=== PATIENT | male | born 1955 | race African-American/Black ===

== ENCOUNTER 2016-08-01 22:28 | Inpatient (IN) | payer OTHER ==
--- NOTE | ~2016-08-01 | DS ---
Discharge Summary [facility] [address] [place]. [address] NAME: OKSANA BANUELOS : 59 STATUS : DIS IN PAT#: [id number] AGE: 60 ADM/REG DATE : 08/02/16 MR#: [id number] REPORT SERV DATE: 08/11/16 DICTATED BY: BISI ROMERO DATE: 08/10/16 REPORT STATUS : Draft TRANSCRIBED BY: MODL DATE: 08/10/16 ADMISSION DATE: 08/02/2016 DISCHARGE DATE: 08/10/2016 REASON FOR ADMISSION: Abdominal pain concerning for acute pancreatitis. HOSPITAL COURSE AND H AND P: Please refer to my discharge dictation dated 08/07/2016, for complete details regarding the patient's admission. In brief, the patient was admitted to the hospital service for his abdominal pain. The patient was initially scheduled to have been discharged to a rehab facility; we were continuously waiting for insurance approval. Then, finally on Thursday, we heard back from the insurance company saying that he had been denied for rehab, so we decided to discharge the patient home on Thursday. However, on Thursday, he had complained of some hematuria and a possible syncopal episode. Talking with the nurse that situation happened yesterday, but at any rate, we obtained a UA which was negative for hematuria and repeated KUB for his abdominal distention which has continued to show gas and stool, but no ascites. He was monitored and he will be discharged home today in stable condition as he has been denied rehab. DISCHARGE DIAGNOSES: 1. Alcoholic liver disease. Alcohol abuse. Cocaine use on UDS. Distended abdomen likely secondary to stool and gas not ascites. 2. Portal hypertensive gastropathy. 3. Esophageal varices secondary to liver disease. 4. Generalized weakness for his resolving. 5. Hyponatremia, now resolved. PROCEDURES: Include CT scan of the abdomen and pelvis without contrast. Gallbladder ultrasound, limited ultrasound to evaluate ascites, acute abdominal series, EGD. CONSULTATIONS: Dr. Cook and Dr. Chapman. DISCHARGE MEDICATIONS: Include aspirin 81 mg daily, Colace 100 mg at bedtime, lactulose 30 mL three times a day, Protonix 40 mg at bedtime, MiraLAX 17 mg once a day, tramadol 50 mg p.r.n. pain, #20 given. I spent over 30 minutes in discharge planning and coordination of care. ADDENDUM The patient was initially scheduled to be discharged on 08/07/2016, however, waiting for insurance approval. He was medically approved to go to [facility], but again, we are awaiting for his insurance to give approval, they had not yet, but they were no overnight issues the following day. Still has a distended abdomen, but likely it could be from gas. He denies any nausea or vomiting. He is tolerating food well, less likely secondary to an ileus or partial small bowel obstruction. Hopefully, we will have insurance approval today and he will be discharged to [facility] for rehab. DISCHARGE DIAGNOSES Discharge Summary [address] [place]. [address] NAME: OKSANA BANUELOS : 59 STATUS : DIS IN PAT#: [id number] AGE: 60 ADM/REG DATE : 08/02/16 MR#: [id number] REPORT SERV DATE: 08/11/16 DICTATED BY: BISI ROMERO DATE: 08/10/16 REPORT STATUS : Draft TRANSCRIBED BY: BOBO DATE: 08/10/16 Alcoholic liver disease, alcohol abuse, cocaine use on UDS, distended abdomen, portal hypertensive gastropathy, esophageal varices secondary to liver disease, generalized weakness, hyponatremia now resolved. DISCHARGE MEDICATIONS Include aspirin 81 mg once a day, Colace 100 mg at bedtime, lactulose 30 mL three times a day, Protonix 40 mg before breakfast, MiraLAX 17 mg once a day, Lasix 40 mg daily. Spending over 30 minutes in discharge planning and coordination of care. ROBERT/BOBO Bisi Romero MD / [id number] CC: Bisi Romero MD
--- NOTE | ~2016-08-01 | CN ---
Consultation Report [facility] [address]. [address] NAME: OKSANA BANUELOS : 59 STATUS : ADM IN PAT#: [id number] AGE: 60 ADM/REG DATE : 08/02/16 MR#: [id number] REPORT SERV DATE: 08/03/16 DICTATED BY: MODE CHAPMAN DATE: 08/03/16 REPORT STATUS : Draft TRANSCRIBED BY: MODL DATE: 08/03/16 DATE OF CONSULTATION: 08/03/2016 REASON FOR CONSULTATION: Suspected pancreatitis. HISTORY OF PRESENT ILLNESS: Mr. Banuelos is a 60-year-old gentleman admitted on 08/02/2016 for abdominal pain going on for about a week ago with some discomfort. He points to his pain in the epigastric area radiating to the back and said his pain was 10 on a scale of 1 to 10. He says the pain has been coming up gradually and he has been vomiting without hematemesis. PAST MEDICAL HISTORY: The patient has a history of regular alcohol abuse and has had elevated liver enzymes and hepatic steatosis. He also has a history of coronary artery disease. PAST SURGICAL HISTORY: 1. Coronary artery disease with stents. 2. Some surgery on his colon about 18 years ago where a part of the colon was taken out. MEDICATIONS: Home medications include aspirin and hydrocodone. HABITS: Smokes and drinks very heavily. PHYSICAL EXAMINATION: GENERAL: He is an alert and oriented gentleman who has been complaining of pain, but in no acute distress. VITAL SIGNS: Stable and he is afebrile. NECK: Supple without lymphadenopathy, thyromegaly, or carotid bruits. There is definite evidence of icterus. LUNGS AND CVS: Normal. ABDOMEN: Somewhat distended and mildly tender diffusely. No guarding, rigidity, or rebound. LABS: Have shown a total bilirubin elevated to 5, it was 4.8 yesterday. AST is 120, ALT is 16. Ammonia is elevated at 42, though patient is fully alert and oriented. He has elevated iron indices probably secondary to the inflammation of the liver. His BUN and creatinine are normal, and CO2 is normal also. His CBC reveals a white count of 4.7, hemoglobin/hematocrit 10.2 and 29.7 with a platelet count low at 91 and an INR of 1.7. His albumin is low at 2.3. A CT scan of the abdomen and pelvis done on the without IV contrast reveals no evidence of acute pancreatitis by CT. The gallbladder is distended with fluid and with thickened gallbladder wall. There is trace amount of perihepatic ascites. There is diffusely fatty infiltration of the liver. His abdominal ultrasound shows no ductal dilation, it is gallbladder sludge and maybe small stones. No evidence of acute cholecystitis. Consultation Report [address] [place]. [address] NAME: OKSANA BANUELOS : 59 STATUS : ADM IN PAT#: [id number] AGE: 60 ADM/REG DATE : 08/02/16 MR#: [id number] REPORT SERV DATE: 08/03/16 DICTATED BY: MODE CHAPMAN DATE: 08/03/16 REPORT STATUS : Draft TRANSCRIBED BY: BOBO DATE: 08/03/16 IMPRESSION: 1. The patient's elevated liver enzymes are definitely not secondary to biliary disease, but it is secondary to liver disease. He does have alcoholic liver disease and pretty far advanced disease as indicated by an elevated total bilirubin, AST greater than ALT, low albumin, low platelets and an elevated INR. 2. Persistent pain with nausea and vomiting. RECOMMENDATIONS: I have discussed in great detail with the patient that he has pretty advanced liver disease and there is not further anything to be done, and he absolutely needs to quit alcohol in all shapes and forms, otherwise his life span is going to be very short and this was discussed. In addition to the alcoholic liver disease, he does have history of significant coronary artery disease. RECOMMENDATIONS: We will plan an EGD for the nausea and vomiting. Otherwise, no further workup needs to be done for a liver standpoint. JAYLAN/BOBO Mango Chapman M.D. / [id number] CC: Monica Mccoy M.D.
--- NOTE | ~2016-08-01 | EGD ---
EGD REPORT [facility] [address] [place] [address] NAME: OKSANA BANUELOS : 59 STATUS : ADM IN PAT#: [id number] AGE: 60 ADM/REG DATE : 08/02/16 MR#: [id number] REPORT SERV DATE: 08/04/16 DICTATED BY: CHANDAN VARGAS DATE: 08/04/16 REPORT STATUS : Draft TRANSCRIBED BY: [facility] DATE: 08/04/16 [facility] Patient Name: Oksana Banuelos Date of : 1955 Attending MD: CHANDAN VARGAS MD Procedure Date No Time: 08/04/2016 Procedure: Upper GI endoscopy Indications: Epigastric abdominal pain Medicines: Monitored Anesthesia Care Complications: No immediate complications. Estimated blood loss: Minimal. Procedure: After obtaining informed consent, the endoscope was passed under direct vision. Throughout the procedure, the patient's blood pressure, pulse, and oxygen saturations were monitored continuously. The GIF [id number] was introduced through the mouth, and advanced to the second part of duodenum. The upper GI endoscopy was accomplished without difficulty. The patient tolerated the procedure well. Findings: Grade I varices were found in the lower third of the esophagus. They were medium in largest diameter. Severe portal hypertensive gastropathy was found in the entire examined stomach. No gross lesions were noted in the entire examined duodenum. The cardia and gastric fundus were normal on retroflexion. The exam was otherwise without abnormality. Impression: - Grade I esophageal varices. - Portal hypertensive gastropathy. - The examination was otherwise normal. Recommendation: - [facility]. - Use Protonix (pantoprazole) 40 mg PO daily. - Full liquid diet today. Procedure Code(s): --- Professional --- 77895, Esophagogastroduodenoscopy, flexible, transoral; diagnostic, including collection of specimen(s) by brushing or washing, when performed (separate procedure) Diagnosis Code(s): --- Professional --- I85.00, Esophageal varices without bleeding K76.6, Portal hypertension EGD REPORT [facility] [address] [place] [address] [place]. [address] NAME: OKSANA BANUELOS : 59 STATUS : ADM IN [facility]#: [id number] AGE: 60 ADM/REG DATE : 08/02/16 MR#: [id number] REPORT SERV DATE: 08/04/16 DICTATED BY: CHANDAN VARGAS DATE: 08/04/16 REPORT STATUS : Draft TRANSCRIBED BY: [employer] DATE: 08/04/16 K31.89, Other diseases of stomach and duodenum R10.13, Epigastric pain CPT copyright 2013 [employer]. All rights reserved. The codes documented in this report are preliminary and upon placement interviewer review may be revised to meet current compliance requirements. Chandan Vargas MD CHANDAN VARGAS MD 08/04/2016 11:54 AM This report has been signed electronically. Number of Addenda: 0 Note Initiated On: 08/04/2016 11:40 AM Scope Withdrawal Time 0 hours 0 minutes 0 seconds [address] [place] [address]
--- NOTE | ~2016-08-01 | HP ---
History And Physical [id number] [place]. [address] NAME: OKSANA BANUELOS : 59 STATUS : ADM IN [facility]#: [id number] AGE: 60 ADM/REG DATE : 08/02/16 MR#: [id number] REPORT SERV DATE: 08/02/16 DICTATED BY: SADIA LEGGETT DATE: 08/02/16 REPORT STATUS : Draft TRANSCRIBED BY: MODL DATE: 08/02/16 DATE OF ADMISSION: 08/02/2016 CHIEF COMPLAINT: A 60-year-old male presenting with abdominal pain. HISTORY OF PRESENTING ILLNESS: The patient states that for about a week, he has had increasing abdominal discomfort. He describes it in his epigastric portion of his abdomen radiating towards the back, a sharp quality, 10/10 severity, that has become gradually more severe and now is constant and debilitating as he describes it. He has also had significant cramping of his legs exacerbated by any kind of exertion, but he also describes chest discomfort in the middle of his chest, a tightness quality, up to a 10/10 severity, associated with dyspnea on exertion. There has been no nausea or vomiting. No diarrhea. He admits to feeling as if his abdomen is swollen. He has had increasing somnolence recently with 14 to 15 hours of sleep a day and is increasing a feeling of confusion and incoherence at times. He has felt dizzy, lightheaded as near syncope. Sometimes, his eyes become "blurry." REVIEW OF SYSTEMS: Otherwise, 14-point review of systems was obtained and was negative. PAST MEDICAL HISTORY: 1. Cirrhosis. 2. Alcoholism. 3. Coronary artery disease, status post stent placement x2. PAST SURGICAL HISTORY: Bowel obstruction leading to partial bowel removal, colectomy with colostomy and then reversal. ALLERGIES: NO KNOWN DRUG ALLERGIES. SOCIAL HISTORY: Drinks beer. He is unable to really give an estimate of how much, but he states that on the day prior to admission, he only drank two beers. No tobacco abuse. He lives with his brother. He has no children. No IV drug abuse. FAMILY HISTORY: Mother with hypertension. Brother and father are healthy. No known family history of pancreas or liver disease. CURRENT MEDICATIONS: Include aspirin and hydrocodone. PHYSICAL EXAMINATION: VITAL SIGNS: Temperature 99.4, pulse 96, blood pressure 139/74, respiratory rate 18, O2 History And Physical [address] [place]. [address] NAME: OKSANA BANUELOS : 59 STATUS : ADM IN [facility]#: [id number] AGE: 60 ADM/REG DATE : 08/02/16 MR#: [id number] REPORT SERV DATE: 08/02/16 DICTATED BY: SADIA LEGGETT DATE: 08/02/16 REPORT STATUS : Draft TRANSCRIBED BY: BOBO DATE: 08/02/16 saturation 99% on room air. GENERAL: A pleasant, cooperative male, in minimal distress from abdominal pain. HEENT: Pupils are equal, round, and reactive to light. No conjunctival pallor. No scleral icterus. Nares are patent. Oropharynx is clear of obstruction. Moist mucous membranes. NECK: Trachea midline. No thyromegaly. LYMPH: No cervical lymphadenopathy. No supraclavicular lymphadenopathy. RESPIRATORY: Clear to auscultation at bases. No wheezes, rales, or rhonchi. Normal respiratory effort. CARDIOVASCULAR: Regular rate and rhythm. No murmurs, rubs, or gallops. No extremity edema is appreciated. ABDOMEN: Quite distended by examination. Minimal tympanic resonance percussed throughout. Tender particularly in the epigastric with guarding, but no rebound effect. No hepatosplenomegaly. DERMATOLOGIC: Warm and dry extremities. No pallor, no cyanosis. PSYCHIATRIC: Normal affect. Good mood. Alert and oriented x3. LABORATORY DATA: White blood cell count 6.2, hemoglobin 10.6, hematocrit 30.3, platelets 105. Sodium 130, potassium 4.5, chloride 92, bicarb 26, BUN 9, creatinine 2.86, glucose 96, brain natriuretic peptide 37, troponin negative, lipase 680, total bilirubin 4.8, AST 131, ammonia level 36. CURRENT STUDIES: 1. Chest x-ray by my own evaluation shows no acute cardiopulmonary process. 2. EKG by my own evaluation shows sinus rhythm, incomplete right bundle-branch block. 3. A CT scan of the abdomen shows cirrhosis, pancreatitis, ascites, thickening, and distention of the gallbladder. ASSESSMENT AND PLAN: 1. Acute pancreatitis. Counseled alcohol abstinence. Check fasting lipid panel. Check ultrasound of the gallbladder. Place on IV narcotic pain management. Make n.p.o. with IV fluids. 2. Cirrhosis. Check hepatitis panel. Counseled abstinence of alcohol. 3. Coronary artery disease, history of stent placement x2. On aspirin. 4. Leg cramps with exertion, possible claudication? Check an arterial Doppler ultrasound to rule out peripheral arterial disease. JEOVANY/BOBO Sadia Leggett M.D. / [id number] CC: History And Physical [address] [address] NAME: OKSANA BANUELOS : [birth year] STATUS : ADM IN [facility]#: [id number] AGE: 60 ADM/REG DATE : 08/02/16 MR#: [id number] REPORT SERV DATE: 08/02/16 DICTATED BY: SADIA LEGGETT DATE: 08/02/16 REPORT STATUS : Draft TRANSCRIBED BY: BOBO DATE: 08/02/16 Monica Mccoy M.D. [facility]
--- NOTE | ~2016-08-01 | DS ---
Discharge Summary [facility] [address] [facility] [place]. [address] NAME: OKSANA BANUELOS : 59 STATUS : ADM IN PAT#: [id number] AGE: 60 ADM/REG DATE : 08/02/16 MR#: [id number] REPORT SERV DATE: 08/08/16 DICTATED BY: BISI ROMERO DATE: 08/07/16 REPORT STATUS : Draft TRANSCRIBED BY: MODL DATE: 08/07/16 ADMISSION DATE: 08/02/2016 DISCHARGE DATE: 08/07/2016 REASON FOR ADMISSION: Abdominal pain concerning for acute pancreatitis. HISTORY OF PRESENT ILLNESS: Please refer Dr. Lujan's history and physical dated 08/02/2016 for complete details regarding the patient's admission. The patient is admitted to the Hospitalist Service for initial concern of acute pancreatitis. HOSPITAL COURSE: The patient had an uncomplicated hospital course. Dr. Lujan had consulted Dr. Edward Chapman for suspected pancreatitis. Dr. Chapman evaluated the patient and felt that his elevation in liver enzymes was not secondary to biliary disease or pancreatitis, but likely due to alcoholic liver disease especially in the face of an elevated T bilirubin, AST greater than ALT, low albumin, low platelets, and an elevated INR. The patient was scheduled to have an EGD, which he had done by Dr. Cook, which showed grade 1 esophageal varices, portal hypertensive gastropathy, and recommended taking Protonix 40 mg daily. Of note, the patient had a CAT scan of his abdomen and pelvis done in the ER, which showed no discrete evidence of CT imaging for acute pancreatitis. The gallbladder was distended with fluid with thickened gallbladder wall likely due to hepatic disease. There is a trace amount of perihepatic ascites present. There is diffusely fatty infiltration of the liver without focal mass or defect. The patient had a followup gallbladder ultrasound, which showed gallbladder sludge and small stones. No evidence for acute cholecystitis or biliary obstruction. I assumed care of this patient from Dr. Mccoy on 08/05/2016. When I first evaluated him, he had some distended abdomen, which the patient states was new to him after having an EGD. However, reviewing Dr. Chapman's and Dr. Lujan's history and physical, he had a distended abdomen on admission. Given the fact that he had alcoholic liver disease, I obtained an acute abdominal series just to evaluate if his abdominal distention was secondary to ascites versus gas and constipation. The KUB showed some atelectasis, but no acute intraabdominal process. He was started on aggressive lactulose and MiraLAX, had several bowel movements. The day prior to discharge, he was complaining of his abdomen still being distended. I ask Interventional Radiology to evaluate for paracentesis. He went down for a limited abdominal ultrasound, which showed a small amount of ascites not enough to perform paracentesis. On the day of discharge, he had been tolerating food quite well and tolerating lactulose and MiraLAX. Had several bowel movements. His abdomen is still distended, but not causing him any dysfunction at this time. The patient had complained of some weakness and Physical Therapy had recommended rehab. He has been accepted to [facility] for rehab. He will be discharged in a stable condition today if he is financially approved for rehab. The patient has reached maximal hospitalization. DISCHARGE DIAGNOSES: 1. Alcoholic liver disease. 2. Alcohol abuse. 3. Cocaine use on UDS. 4. Distended abdomen. 5. Portal hypertensive gastropathy. Discharge Summary [address] [address] NAME: OKSANA BANUELOS : 59 STATUS : ADM IN [facility]#: [id number] AGE: 60 ADM/REG DATE : 08/02/16 MR#: [id number] REPORT SERV DATE: 08/08/16 DICTATED BY: BISI ROMERO DATE: 08/07/16 REPORT STATUS : Draft TRANSCRIBED BY: BOBO DATE: 08/07/16 6. Esophageal varices secondary to liver disease. 7. Generalized weakness. 8. Hyponatremia, now resolved. PROCEDURES: Include CT scan of the abdomen and pelvis without contrast; gallbladder ultrasound, limited ultrasound to evaluate ascites; acute abdominal series; EGD. CONSULTATIONS: With Dr. Cook and Dr. Chapman. DISCHARGE MEDICATIONS: Include aspirin 81 mg daily, Colace 100 mg at bedtime, lactulose 30 mL three times a day, Protonix 40 mg before breakfast, MiraLAX 17 g once a day, Lasix 40 mg once a day. The patient will be discharged to [facility] for rehab. Spending over 30 minutes in discharge planning and coordination of care on Mr. Banuelos. ROBERT/BOBO Bisi Romero MD / [id number] CC: Bisi Romero MD
[2016-08-02 00:41] LABS: BASOPHILS 0.6 %; BASOPHILS ABSOLUTE 0.04 10/3/uL (0.0-0.16); EOSINOPHILS 0.3 %; EOSINOPHILS ABSOLUTE 0.02 10/3/uL (0.0-0.53); HEMATOCRIT 30.3 % (40.0-51.0); HEMOGLOBIN 10.6 g/dL (13.6-17.8); IMMATURE GRANULOCYTES 0.3 %; IMMATURE GRANULOCYTES ABSOLUTE 0.02 10/3/uL (0.0-0.11); MEAN CORPUSCULAR HEMOGLOB 34.4 pg (26.0-34.0); MEAN CORPUSCULAR VOLUME 98.4 fL (80-100); MEAN PLATELET VOLUME 11.3 fL (9.2-13.0); MONOCYTES 23.2 %; MONOCYTES ABSOLUTE 1.45 10/3/uL (0.21-1.20); NEUTROPHILS 59.6 %; NEUTROPHILS ABSOLUTE 3.71 10/3/uL (2.02-8.40); PLATELET COUNT 105 10/3/uL (150-400); RBC DISTRIBUTION WIDTH 14.3 % (12.0-16.0); RED CELL COUNT 3.08 10/6/uL (4.7-6.1); WHITE BLOOD CELLS 6.2 10/3/uL (4.5-10.5)
[2016-08-02 00:42] LABS: MANUAL DIFF NO %
[2016-08-02 00:49] LABS: INTERNATIONAL NORMAL RATI 1.5 UNITS (-); PARTIAL THROMBO TIME 36.9 SEC (22.5-37.2); PROTIME (NOT ORD) 18.2 SEC (12.0-14.5)
[2016-08-02 00:57] LABS: ALBUMIN 2.5 G/DL (3.5-5.0); ALKALINE PHOSPHATASE 98 U/L (45-117); BUN (BLOOD UREA NITROGEN) 9 MG/DL (6-23); CALCIUM, SERUM 7.7 MG/DL (8.5-10.4); CHEST PAIN PROFILE TAT 0 Hrs 22 Mins; CHLORIDE, SERUM 92 MMOL/L (96-112); CO2 (CARBON DIOXIDE) 26 MMOL/L (24-34); CPK (IF ELEVATED MB BANDS) 99 U/L (0-200); CREATININE 0.86 MG/DL (0.70-1.30); GFR AFRICAN AMERICAN 111 ML/MIN (>=60); GFR NON AFRICAN AMERICAN 96 ML/MIN (>=60); GLUCOSE, SERUM 96 MG/DL (60-99); INDIRECT BILIRUBIN(NOT ORDER) 1.8 MG/DL (0.1-0.9); POTASSIUM, SERUM 4.5 MMOL/L (3.5-5.3); SGOT(AST) 131 U/L (5-40); SGPT(ALT) 16 U/L (5-65); SODIUM, SERUM 130 MMOL/L (135-148); TOTAL BILIRUBIN 4.8 MG/DL (0-1.2); TOTAL PROTEIN 7.3 G/DL (6.0-8.5); TROPONIN I <0.02 NG/ML (<0.05)
[2016-08-02 00:58] LABS: ACETAMINOPHEN LEVEL (TYLENOL) < 2.0 MCG/ML (10.0-20.0); ALCOHOL < 10 MG/DL (0); SALICYLATE < 1.7 MG/DL (-)
[2016-08-02 01:03] LABS: BAND NEUTROPHILS 1 %; BASOPHILS 2 %; BASOPHILS ABSOLUTE (CALC) 0.12 10/3/uL (0.0-0.16); ER DIFF TAT 0 Hrs 28 Mins; LYMPHOCYTES 3 %; LYMPHOCYTES ABSOLUTE (CALC) 0.19 10/3/uL (0.67-4.30); MONOCYTES 11 %; MONOCYTES ABSOLUTE (CALC) 0.68 10/3/uL (0.21-1.20); NEUTROPHILS ABSOLUTE (CALC) 5.21 10/3/uL (2.02-8.40); SEGMENTED NEUTROPHIL (0) 83 %; TOTAL NUCLEATED CELLS 100
[2016-08-02 01:04] LABS: PLATELET ESTIMATE SLT DEC (ADEQUATE); RBC MORPHOLOGY NORM (NORMAL)
[2016-08-02 01:27] LABS: PROCALCITONIN 0.78 ng/mL (<0.5)
[2016-08-02] MEDS ORDERED: HALF81 PO (02:24)
[2016-08-02] MEDS ORDERED: NORCO1 TA1 PO (02:25)
[2016-08-02 02:32] LABS: ASCORBIC ACID (UR NOT ORDER) NEG (NEG); BILIRUBIN, URINE MODERATE (NEG); ER URINALYSIS TAT 0 Hrs 00 Mins; KETONE, URINE 20 MG/DL (NEG); LEUKOCYTE ESTERASE(NOT OR NEG (NEG); NITRITE (URINE) NEG (NEG); WBC (NOT ORDERED) (RFLEX) 4 (0-5)
[2016-08-02 02:35] LABS: AMPHETAMINES (NOT ORD) NEG (NEG); BARBITURATES (NOT ORDERED NEG (NEG); BENZODIAZEPINES (NOT ORD) NEG (NEG); CANNABINOIDS (THC) NEG (NEG); COCAINE (NOT ORDERED) POS (NEG); OPIATES NEG (NEG); PHENCYCLIDINE(PCP) NEG (NEG); TRICYCLICS NEG (NEG)
[2016-08-02 13:06] LABS: BASOPHILS 0.6 %; BASOPHILS ABSOLUTE 0.03 10/3/uL (0.0-0.16); EOSINOPHILS 0.6 %; EOSINOPHILS ABSOLUTE 0.03 10/3/uL (0.0-0.53); HEMATOCRIT 29.7 % (40.0-51.0); HEMOGLOBIN 10.2 g/dL (13.6-17.8); IMMATURE GRANULOCYTES 0.2 %; IMMATURE GRANULOCYTES ABSOLUTE 0.01 10/3/uL (0.0-0.11); LYMPHOCYTES 14.6 %; LYMPHOCYTES ABSOLUTE 0.69 10/3/uL (0.67-4.30); MEAN CORPUS HGB CONC 34.3 g/dL (32.0-36.0); MEAN CORPUSCULAR HEMOGLOB 34.3 pg (26.0-34.0); MEAN PLATELET VOLUME 10.9 fL (9.2-13.0); MONOCYTES 17.6 %; MONOCYTES ABSOLUTE 0.83 10/3/uL (0.21-1.20); NEUTROPHILS 66.4 %; NEUTROPHILS ABSOLUTE 3.13 10/3/uL (2.02-8.40); PLATELET COUNT 91 10/3/uL (150-400); RBC DISTRIBUTION WIDTH 14.4 % (12.0-16.0); RED CELL COUNT 2.97 10/6/uL (4.7-6.1); WHITE BLOOD CELLS 4.7 10/3/uL (4.5-10.5)
[2016-08-02 13:08] LABS: MANUAL DIFF NO %
[2016-08-02 13:16] LABS: INTERNATIONAL NORMAL RATI 1.7 UNITS (-); PROTIME (NOT ORD) 19.6 SEC (12.0-14.5)
[2016-08-02 13:17] LABS: PARTIAL THROMBO TIME 39.4 SEC (22.5-37.2)
[2016-08-02 13:28] LABS: % IRON SAT 85 % (20-50); A/G RATIO 0.5 (0.7-1.9); ALBUMIN 2.3 G/DL (3.5-5.0); ALKALINE PHOSPHATASE 97 U/L (45-117); BUN (BLOOD UREA NITROGEN) 8 MG/DL (6-23); CALCIUM, SERUM 7.2 MG/DL (8.5-10.4); CHLORIDE, SERUM 98 MMOL/L (96-112); CHOLESTEROL 175 MG/DL (< 200); CO2 (CARBON DIOXIDE) 24 MMOL/L (24-34); CPK 86 U/L (0-200); CREATININE 0.73 MG/DL (0.70-1.30); FERRITIN 1254 NG/ML (26-388); GFR AFRICAN AMERICAN 119 ML/MIN (>=60); GFR NON AFRICAN AMERICAN 102 ML/MIN (>=60); GLOBULIN 4.5 G/DL (2.5-4.1); GLUCOSE, SERUM 91 MG/DL (60-99); HDL CHOLESTEROL 29 MG/DL (> 39); IRON BINDING CAPACITY 137 MCG/DL (250-450); IRON, SERUM 117 MCG/DL (35-150); LDL CHOLESTEROL 126 MG/DL (< 130); NON-HDL CHOLESTEROL 146 MG/DL (< 160); POTASSIUM, SERUM 4.3 MMOL/L (3.5-5.3); SGOT(AST) 120 U/L (5-40); SGPT(ALT) 16 U/L (5-65); SODIUM, SERUM 133 MMOL/L (135-148); TOTAL PROTEIN 6.8 G/DL (6.0-8.5); TRIGLYCERIDE 102 MG/DL (< 150); TROPONIN I <0.02 NG/ML (<0.05)
[2016-08-02 13:29] LABS: B NATRIURETIC PEPTIDE (BNP) 83.4 PG/ML (< 100.0)
[2016-08-02 13:33] LABS: CK-MB 0.5 NG/ML
[2016-08-04 07:01] LABS: A/G RATIO 0.5 (0.7-1.9); ALBUMIN 1.9 G/DL (3.5-5.0); CALCIUM, SERUM 7.2 MG/DL (8.5-10.4); CHLORIDE, SERUM 101 MMOL/L (96-112); CO2 (CARBON DIOXIDE) 26 MMOL/L (24-34); CREATININE 0.69 MG/DL (0.70-1.30); GFR AFRICAN AMERICAN 121 ML/MIN (>=60); GFR NON AFRICAN AMERICAN 105 ML/MIN (>=60); GLUCOSE, SERUM 108 MG/DL (60-99); SGOT(AST) 125 U/L (5-40); SGPT(ALT) 18 U/L (5-65); SODIUM, SERUM 136 MMOL/L (135-148); TOTAL PROTEIN 5.9 G/DL (6.0-8.5)
[2016-08-04 07:02] LABS: ALKALINE PHOSPHATASE 80 U/L (45-117); BUN (BLOOD UREA NITROGEN) 4 MG/DL (6-23); POTASSIUM, SERUM 3.4 MMOL/L (3.5-5.3); TOTAL BILIRUBIN 4.3 MG/DL (0-1.2)
[2016-08-04 08:53] LABS: HEPATITIS B SURFACE ANTIGEN NON-REACTIVE (NON-REACT)
[2016-08-04 09:10] LABS: HEPATITIS C ANTIBODY NON-REACTIVE (NON-REACT)
[2016-08-04 09:11] LABS: HEPATITIS B CORE AB IGM NON-REACTIVE (NON-REAC)
[2016-08-04 09:12] LABS: HEP A ANTIBODY IGM NON-REACTIVE (NON-REACT)
[2016-08-09 14:55] LABS: ASCORBIC ACID (UR NOT ORDER) NEG (NEG); BILIRUBIN, URINE SMALL (NEG); KETONE, URINE NEGATIVE (NEG); LEUKOCYTE ESTERASE(NOT OR NEG (NEG); WBC (NOT ORDERED) (RFLEX) 2 (0-5)
[2016-08-10 06:36] LABS: HEMATOCRIT 27.7 % (40.0-51.0); HEMOGLOBIN 9.8 g/dL (13.6-17.8); MEAN CORPUS HGB CONC 35.4 g/dL (32.0-36.0); MEAN CORPUSCULAR HEMOGLOB 35.3 pg (26.0-34.0); MEAN CORPUSCULAR VOLUME 99.6 fL (80-100); MEAN PLATELET VOLUME 10.9 fL (9.2-13.0); RBC DISTRIBUTION WIDTH 17.1 % (12.0-16.0); RED CELL COUNT 2.78 10/6/uL (4.7-6.1); WHITE BLOOD CELLS 5.1 10/3/uL (4.5-10.5)
[2016-08-10 06:43] LABS: PLATELET COUNT 158 10/3/uL (150-400)
[2016-08-10 06:44] LABS: MANUAL DIFF YES %
[2016-08-10 06:48] LABS: A/G RATIO 0.4 (0.7-1.9); ALBUMIN 1.6 G/DL (3.5-5.0); BUN (BLOOD UREA NITROGEN) 5 MG/DL (6-23); CALCIUM, SERUM 7.3 MG/DL (8.5-10.4); CHLORIDE, SERUM 105 MMOL/L (96-112); CO2 (CARBON DIOXIDE) 29 MMOL/L (24-34); CREATININE 0.69 MG/DL (0.70-1.30); GFR AFRICAN AMERICAN 121 ML/MIN (>=60); GFR NON AFRICAN AMERICAN 105 ML/MIN (>=60); GLOBULIN 4.4 G/DL (2.5-4.1); PHOSPHORUS, SERUM 2.1 MG/DL (2.5-4.5); SGOT(AST) 77 U/L (5-40); SGPT(ALT) 11 U/L (5-65); SODIUM, SERUM 137 MMOL/L (135-148)
[2016-08-10 06:49] LABS: ALKALINE PHOSPHATASE 99 U/L (45-117); GLUCOSE, SERUM 81 MG/DL (60-99); POTASSIUM, SERUM 4.3 MMOL/L (3.5-5.3); TOTAL BILIRUBIN 3.1 MG/DL (0-1.2)
[2016-08-10 09:06] LABS: BAND NEUTROPHILS 3 %; BASOPHILS 1 %; BASOPHILS ABSOLUTE (CALC) 0.05 10/3/uL (0.0-0.16); EOSINOPHILS 1 %; EOSINOPHILS ABSOLUTE (CALC) 0.05 10/3/uL (0.0-0.53); IMMATURE GRANS ABSOLUTE (CALC) 0.05 10/3/uL (0.0-0.11); LYMPHOCYTES 26 %; LYMPHOCYTES ABSOLUTE (CALC) 1.33 10/3/uL (0.67-4.30); METAMYELOCYTES 1 %; MONOCYTES 30 %; MONOCYTES ABSOLUTE (CALC) 1.53 10/3/uL (0.21-1.20); NEUTROPHILS ABSOLUTE (CALC) 2.09 10/3/uL (2.02-8.40); PLATELET ESTIMATE ADQ (ADEQUATE); SEGMENTED NEUTROPHIL (0) 38 %; TOTAL NUCLEATED CELLS 100
[2016-08-10 09:07] LABS: ANISOCYTOSIS 1+ (5-10/OIF) (0-5/OIF); MACROCYTES 1+ (5-10/OIF) (0-5/OIF)
[2016-08-10] MEDS ORDERED: L40 PO (11:26)
[2016-08-10] MEDS ORDERED: ULTRAM50 PO (11:27)
[2016-08-10] MEDS ORDERED: GENERLAC PO (11:29)
[2016-08-10] MEDS ORDERED: PROTONIX PO (11:29)
[2016-08-10] MEDS ORDERED: DSS PO (11:30)
== END 2016-08-10 14:02 | DRG 433 ==
LOC: ER 22:28 → 5SO 08-02 02:49
PROVIDERS: Hospitalist; Internal Medicine; Internal Medicine Gastroenterology; Nurse Practitioner
PROC: 0DJ08ZZ Inspection of Upper Intestinal Tract, Via Natural or Artificial Opening Endoscopic (ICD-10-PCS; principal; 2016-08-04 11:43)
DX: K70.31 Alcoholic cirrhosis of liver with ascites (principal); K76.6 Portal hypertension; I85.10 Secondary esophageal varices without bleeding; F10.188 Alcohol abuse with other alcohol-induced disorder; E87.1 Hypo-osmolality and hyponatremia; F14.20 Cocaine dependence, uncomplicated; I25.10 Atherosclerotic heart disease of native coronary artery without angina pectoris; K80.20 Calculus of gallbladder without cholecystitis without obstruction; F17.210 Nicotine dependence, cigarettes, uncomplicated; K31.89 Other diseases of stomach and duodenum; K59.00 Constipation, unspecified; Z95.5 Presence of coronary angioplasty implant and graft; Z90.49 Acquired absence of other specified parts of digestive tract; Z88.2 Allergy status to sulfonamides
CPT/HCPCS: 71010; 74022; 74176; 76705; 80048; 80053; 80061; 80074; 80076; 80305; 80307; 81001; 82140; 82150; 82550; 82553; 82728; 82962; 83540; 83550; 83605; 83690; 83735; 83880; 84100; 84145; 84443; 84484; 85025; 85610; 85730; 86308; 87040; 93005; 93925; 93970; 96374; 96375; 97110-GP; 97116-GP; 97161-GP; 97530-GP; 99285; A9270-GY; J2405

== ENCOUNTER 2016-08-24 09:35 | Emergency (ER) | payer OTHER ==
[~2016-08-24 09:35] MED LIST: DSS PO; GENERLAC PO; HALF81 PO; L40 PO; NORCO1 TA1 PO; PROTONIX PO; ULTRAM50 PO
[2016-08-24 10:16] LABS: BASOPHILS 0.8 %; BASOPHILS ABSOLUTE 0.05 10/3/uL (0.0-0.16); EOSINOPHILS 1.3 %; EOSINOPHILS ABSOLUTE 0.08 10/3/uL (0.0-0.53); ER CBC TAT 0 Hrs 05 Mins; HEMATOCRIT 28.8 % (40.0-51.0); HEMOGLOBIN 10.1 g/dL (13.6-17.8); IMMATURE GRANULOCYTES 0.2 %; IMMATURE GRANULOCYTES ABSOLUTE 0.01 10/3/uL (0.0-0.11); LYMPHOCYTES ABSOLUTE 1.56 10/3/uL (0.67-4.30); MEAN CORPUS HGB CONC 35.1 g/dL (32.0-36.0); MEAN CORPUSCULAR HEMOGLOB 34.6 pg (26.0-34.0); MEAN CORPUSCULAR VOLUME 98.6 fL (80-100); MEAN PLATELET VOLUME 10.2 fL (9.2-13.0); MONOCYTES 16.9 %; MONOCYTES ABSOLUTE 1.01 10/3/uL (0.21-1.20); NEUTROPHILS 54.8 %; NEUTROPHILS ABSOLUTE 3.28 10/3/uL (2.02-8.40); PLATELET COUNT 158 10/3/uL (150-400); RBC DISTRIBUTION WIDTH 14.7 % (12.0-16.0); RED CELL COUNT 2.92 10/6/uL (4.7-6.1)
[2016-08-24 10:17] LABS: MANUAL DIFF NO %
[2016-08-24 10:23] LABS: ASCORBIC ACID (UR NOT ORDER) NEG (NEG); BILIRUBIN, URINE NEGATIVE (NEG); ER URINALYSIS TAT 0 Hrs 12 Mins; KETONE, URINE NEGATIVE (NEG); LEUKOCYTE ESTERASE(NOT OR NEG (NEG); NITRITE (URINE) NEG (NEG); WBC (NOT ORDERED) (RFLEX) < 1 (0-5)
[2016-08-24 10:24] LABS: INTERNATIONAL NORMAL RATI 1.7 UNITS (-); PARTIAL THROMBO TIME 41.3 SEC (22.5-37.2); PROTIME (NOT ORD) 19.6 SEC (12.0-14.5)
[2016-08-24 10:31] LABS: AMPHETAMINES (NOT ORD) NEG (NEG); BARBITURATES (NOT ORDERED NEG (NEG); BENZODIAZEPINES (NOT ORD) NEG (NEG); CANNABINOIDS (THC) NEG (NEG); COCAINE (NOT ORDERED) POS (NEG); OPIATES NEG (NEG); PHENCYCLIDINE(PCP) NEG (NEG); TRICYCLICS NEG (NEG)
[2016-08-24 10:32] LABS: ALKALINE PHOSPHATASE 104 U/L (45-117); BUN (BLOOD UREA NITROGEN) 5 MG/DL (6-23); CALCIUM, SERUM 7.5 MG/DL (8.5-10.4); CHLORIDE, SERUM 103 MMOL/L (96-112); CO2 (CARBON DIOXIDE) 31 MMOL/L (24-34); CREATININE 0.87 MG/DL (0.70-1.30); GFR AFRICAN AMERICAN 110 ML/MIN (>=60); GFR NON AFRICAN AMERICAN 95 ML/MIN (>=60); SGOT(AST) 83 U/L (5-40); SGPT(ALT) 9 U/L (5-65); SODIUM, SERUM 139 MMOL/L (135-148); TOTAL PROTEIN 6.9 G/DL (6.0-8.5)
[2016-08-24 10:33] LABS: A/G RATIO 0.5 (0.7-1.9); ACETAMINOPHEN LEVEL (TYLENOL) < 2.0 MCG/ML (10.0-20.0); ALBUMIN 2.2 G/DL (3.5-5.0); DIRECT BILIRUBIN 1.5 MG/DL (0.0-0.4); GLOBULIN 4.7 G/DL (2.5-4.1); GLUCOSE, SERUM 106 MG/DL (60-99); INDIRECT BILIRUBIN(NOT ORDER) 0.4 MG/DL (0.1-0.9); POTASSIUM, SERUM 3.2 MMOL/L (3.5-5.3); TOTAL BILIRUBIN 1.9 MG/DL (0-1.2)
[2016-08-24 10:34] LABS: ALCOHOL < 10 MG/DL (0); SALICYLATE < 1.7 MG/DL (-)
== END 2016-08-24 11:22 | disposition home or self-care (01) ==
LOC: ER 09:35
PROVIDERS: Emergency Medicine
DX: E87.6 Hypokalemia (principal); R10.9 Unspecified abdominal pain; G89.29 Other chronic pain; F10.10 Alcohol abuse, uncomplicated; F19.10 Other psychoactive substance abuse, uncomplicated; Z95.5 Presence of coronary angioplasty implant and graft; Z79.82 Long term (current) use of aspirin; Z79.899 Other long term (current) drug therapy
CPT/HCPCS: 80053; 80305; 80307; 81001; 82140; 82248; 83690; 85025; 85610; 85730; 99284; A9270-GY

== ENCOUNTER 2016-09-04 11:23 | Emergency (ER) | payer OTHER | END 2016-09-04 11:25 | disposition home or self-care (01) | LOC: ER 11:23 | DX: K70.9 Alcoholic liver disease, unspecified (principal); R11.0 Nausea; M79.1 Myalgia; Z79.82 Long term (current) use of aspirin; Z79.899 Other long term (current) drug therapy | CPT/HCPCS: 99281 ==